=== PATIENT | female | born 1985 | race Asian ===

== ENCOUNTER → 2016-09-21 | Outpatient (CLI) | payer BC ==
[~2016-09-21] MED LIST: FRRS300 PO; PRENTAB26 PO
== END | disposition home or self-care (01) ==
LOC: C.LABSPEC 17:17
PROVIDERS: ATTEND Obstetrics & Gynecology
DX: Z34.03 Encounter for supervision of normal first pregnancy, third trimester (principal)

== ENCOUNTER 2016-10-09 08:22 | Inpatient (IN) | payer BC ==
[~2016-10-09] VITALS: Ht 162.6 cm; Wt 68.2 kg
[2016-10-09] MEDS ORDERED: LACTATED RINGER'S 1000ML 1,000 ML IV PRN (08:44)
[2016-10-09 08:48] VITALS: BMI 25.8
[2016-10-09] MEDS ORDERED: PRENTAB26 PO (09:05)
[2016-10-09] MEDS ORDERED: FENTANYL CITRATE INJ 50 MCG/1 ML 2 ML VIAL ONE (09:17)
[2016-10-09] MEDS ORDERED: FENTANYL 2MCG/ML ROPIV 1.25MG/ML 100ML BAG EPI ONE (09:17)
[2016-10-09] MEDS ORDERED: BUPIVACAINE 0.25% 30 ML VIAL ONE (09:17)
[2016-10-09] MEDS ORDERED: EpHEDrine SULFATE INJ 50 MG/ML AMP ONE (09:17)
[2016-10-09 09:35] LABS: HEMATOCRIT 38.4 % (37-47); MEAN CELL VOLUME 95.5 fL (80-100); MEAN CORPUSCULAR HEMOGLOBIN 32.1 pg (25-34); MEAN CORPUSCULAR HGB CONC 33.6 g/dl (32-36); MEAN PLATELET VOLUME 9.7 fL (7.4-10.4); PLATELET COUNT 242 K/uL (130-400); RED BLOOD COUNT 4.02 M/uL (4.2-5.4); WHITE BLOOD COUNT 9.28 K/uL (4.8-10.8)
[2016-10-09] MEDS ORDERED: LACTATED RINGER'S 1000ML 500 ML IV PRN ×2 (09:55→10:52)
[2016-10-09] MEDS ORDERED: NALOXONE HCL INJ 1 MG in SODIUM CHLORIDE 0.9% 1000ML 1,000 ML IV PRN (09:55)
[2016-10-09] MEDS ORDERED: FENTANYL 2MCG/ML ROPIV 1.25MG/ML 100ML BAG EPI PRN (10:00)
[2016-10-09] MEDS ORDERED: EpHEDrine SULFATE INJ 50 MG/ML AMP IV PRN (10:00)
[2016-10-09] MEDS ORDERED: NALOXONE HCL INJ 0.4 MG/1 ML VIAL/CARP IV PRN (10:00)
[2016-10-09] MEDS ORDERED: NALBUPHINE HCL INJ 10 MG/ML AMP IV PRN (10:00)
[2016-10-09] MEDS ORDERED: ONDANSETRON INJ 2 MG/ML 2 ML VIAL IV PRN (10:00)
[2016-10-09] MEDS ORDERED: DiphenhydrAMINE HCL 50 MG/ML VIAL IV PRN (10:00)
[2016-10-09] MEDS: LACTATED RINGER'S 1000ML 1,000 ML IV SCH ×2 (10:05→10:07)
[2016-10-09 10:38] VITALS: Ht 162.6 cm; Wt 68.2 kg
[2016-10-09] MEDS ORDERED: OXYTOCIN 30 UNITS/500ML NSS IV PRN ×2 (11:00→16:30)
[2016-10-09] MEDS ORDERED: METHYLERGONOVINE MALEATE 0.2 MG/ML AMP ONE (16:11)
[2016-10-09] MEDS ORDERED: BENZOCAINE 20% AER SPR 82.5 GM CAN EXT PRN (16:30)
[2016-10-09] MEDS ORDERED: ACETAMINOPHEN/CODEINE 300/30MG TAB PO PRN ×2 (16:30)
[2016-10-09] MEDS ORDERED: HYDROCORTISONE ACETATE 25 MG SUPP PR PRN (16:30)
[2016-10-09] MEDS ORDERED: METHYLERGONOVINE MALEATE 0.2 MG/ML AMP IM ONE (16:30)
[2016-10-09] MEDS ORDERED: ACETAMINOPHEN 325 MG TAB PO PRN (16:30)
[2016-10-09] MEDS ORDERED: LANOLIN OINT EXT PRN ×2 (16:30)
[2016-10-09] MEDS ORDERED: DIPHTHERIA/TETANUS/PERTUSSIS 0.5 ML SYR/VIAL IM. ONE (16:30)
[2016-10-09] MEDS ORDERED: SUPERCREAM 0.870 % 15GM JAR EXT PRN (16:30)
--- NOTE | 2016-10-09 17:30 | DELIVERY SUMMARY ---
DATE OF OPERATION: 10/09/2016 DELIVERY NOTE DATE OF DELIVERY: 10/09/2016. FINDINGS: Viable female with Apgars of 9 and 10. The baby delivered over a midline second degree laceration. Cord gasses, cord blood samples obtained. The placenta delivered spontaneously. Laceration repaired with 4-0 and 2-0 Vicryl in a routine fashion. Her estimated blood loss was 300 mL. LABOR NOTE: The patient is a 30-year-old 1, para 0 with an EDC of 12 October at 39+ weeks gestational age who presented to labor and delivery in active labor. The patient states her contractions began approximately 0200 hours on the date of delivery. She denied rupture of membranes or vaginal bleeding. The patient has had a benign course. Her blood type is 0 positive, antibody negative, rubella immune, hepatitis B negative. She had a negative panorama, negative internal serum AFP and normal 1-hour Glucola x2 and negative third trimester beta strep culture. Upon admission the patient was 6 cm dilated, 100% efface, +1 station with bulging membranes. Tracing was felt to be category 2 with moderate variability and accelerations. The patient had requested and received an epidural. Over the next 2 hours she had minimal cervical change. Artificial rupture of membranes for clear fluid. Pitocin augmentation was initiated secondary to arrest of dilatation. Over the next 3 hours she progressed to full dilatation and began her second stage. She pushed for approximately 2 hours delivering a viable female with description as above. Cord was clamped and cut. Cord gasses and cord blood samples obtained. The placenta was delivered spontaneously. Inspection of the perineum showed a midline second degree laceration. The patient had some uterine atony at this point which required vigorous uterine massage and IM methargen along with the IV Pitocin. Midline laceration was repaired with 4-0 and 2-0 Vicryl in a routine fashion. Her estimated blood loss was 500 mL. Sponge and needle count was correct. I attest to the content of the Intraoperative Record and any orders documented therein. Any exceptio ns are noted below.
[2016-10-09] MEDS: IBUPROFEN 600 MG TAB PO PRN ×2 (18:06→23:41)
--- NOTE | 2016-10-09 18:29 | Anesthesia Procedure Note ---
Anesthesia Epidural Removal Nt Date & Time October 09, 2016 at 18:29 Notes Mental Status: alert / awake / arousable, participated in evaluation Nausea / Vomiting: adequately controlled Pain: adequately controlled Airway Patency, RR, SpO2: stable & adequate BP & HR: stable & adequate Hydration State: stable & adequate Neuraxial Anesthesia: was administered, sensory block is resolving Anesthetic Complications: no major complications apparent, pt satisfied with anesthetic care Epidural: removed without complications, with tip intact
[2016-10-09 19:30] VITALS: BP 112/76; PULSE 90; TEMP 37.1; O2SAT 98
[2016-10-09] MEDS: DOCUSATE SODIUM 100 MG CAP PO SCH (20:00)
[2016-10-10] VITALS (7 sets, daily range): BP systolic 100–122; BP diastolic 67–79; PULSE 88–117; TEMP 36.4–36.9; O2SAT 98–99
[2016-10-10] MEDS ORDERED: LIDOCAINE/PRILOCAINE 2.5% EA CRM ONE (00:11)
--- NOTE | 2016-10-10 06:49 | Progress Note ---
Subjective October 10, 2016. Subjective conversation w/ patient, physical exam Ambulation: ambulating normally Feeding Type: Breast Feeding Objective Vital Signs Date Time Temp Pulse Resp B/P Pulse Ox O2 Delivery O2 Flow Rate FiO2 10/10/16 03:45 36.5 88 18 122/78 99 Room Air 10/10/16 00:10 36.8 98 18 117/79 99 Room Air 10/10/16 00:10 99 Room Air 10/09/16 19:30 37.1 90 18 112/76 98 Room Air 10/09/16 19:30 98 Room Air Physical Exam General Appearance: WELL-APPEARING, NO APPARENT DISTRESS Fundus: Firm, Non-Tender Extremities: no calf tenderness Laboratory Results Last 24 Hours Test 10/09/16 09:07 10/10/16 04:44 White Blood Count 9.28 K/uL Red Blood Count 4.02 M/uL Hemoglobin 12.9 g/dL Hematocrit 38.4 % Mean Corpuscular Volume 95.5 fL Mean Corpuscular Hemoglobin 32.1 pg Mean Corpuscular Hemoglobin Concent 33.6 g/dl RDW Standard Deviation 46.9 fL RDW Coefficient of Variation 13.6 % Platelet Count 242 K/uL Mean Platelet Volume 9.7 fL Assessment and Plan Post- Day#: 1 Continue Routine Care: - routine care - doing well
[2016-10-10 07:10] LABS: HEMATOCRIT 27.4 % (37-47)
[2016-10-10] MEDS: FERROUS SULFATE 325 MG TAB PO SCH (07:55)
[2016-10-10] MEDS: DOCUSATE SODIUM 100 MG CAP PO SCH ×2 (07:55→19:30)
[2016-10-10] MEDS: IBUPROFEN 600 MG TAB PO PRN ×3 (07:55→23:25)
[2016-10-10] MEDS: PRENATAL VITAMIN TAB PO SCH (07:58)
[2016-10-10] MEDS ORDERED: BISACODYL 5 MG TABEC PO SCH (20:00)
--- NOTE | 2016-10-11 07:23 | Progress Note ---
Subjective Oct 11, 2016. Subjective conversation w/ patient, chart review, review of studies Ambulation: ambulating normally Voiding: no voiding problems Diet Tolerance: Regular Diet Lochia: Moderate Feeding Type: Breast Feeding Objective Vital Signs Date Time Temp Pulse Resp B/P (MAP) Pulse Ox O2 Delivery O2 Flow Rate FiO2 10/10/16 23:15 Room Air 10/10/16 23:15 36.7 113 16 108/67 (81) 98 Room Air 10/10/16 15:30 36.9 117 18 114/73 (87) 98 Room Air 10/10/16 15:30 98 Room Air 10/10/16 12:10 36.7 116 17 108/68 (81) 99 Room Air 10/10/16 08:47 98 Room Air 10/10/16 08:45 36.6 110 16 100/69 (79) 98 Room Air 10/10/16 08:00 Room Air Physical Exam General Appearance: WELL-APPEARING Abdomen: non tender Fundus: Firm Extremities: no calf tenderness Assessment and Plan Post- Day#: 2 Continue Routine Care: home, discussed Fe for low Hb JFD
[2016-10-11] MEDS ORDERED: FRRS300 PO (07:24)
--- NOTE | 2016-10-11 07:25 | Discharge Instructions ---
Discharge Instructions Date of Service Oct 11, 2016. Admission Reason for Admission: Check Labor Discharge Discharge Diagnosis / Problem: normal delivery Discharge Goals Goal(s): Routine recovery after delivery Activity Recommendations Activity Limitations: per Instructions/Follow-up section . Instructions / Follow-Up Instructions / Follow-Up ACTIVITY RECOMMENDATIONS: * Gradual return to full activity over the next 2-3 weeks. * No lifting - nothing heavier than baby over the next 2-3 weeks. * Do not engage in vigorous exercise, sexual activity or sports until cleared by your physician. * Do not drive or operate any motorized equipment until cleared by your physician. * You may shower/bathe daily. MEDICATIONS: For discomfort or pain, you may use Acetaminophen (Tylenol), Ibuprofen (Advil), or Naproxen (Aleve) following the package directions. For constipation you may use Colace following the package directions. BREAST CARE: If you are not breast feeding: * Wear a supportive bra 24 hours a day for one to two weeks. * Avoid stimulating your breasts and nipples as much as possible during the first few weeks after delivery. * When taking a shower, have the warm water hit your back, not breasts. * When your breasts feel full, apply ice packs. Usually three to four times a day helps ease the discomfort. * Take a mild pain medication (Tylenol / Motrin) when you are uncomfortable. If breast feeding: * Use breast milk to lubricate nipples. Lansinoh cream may be used for sore nipples. You do not need to remove cream prior to breast feeding. If using a different brand of cream, check the label for directions regarding removal of cream prior to nursing. * Wear a supportive bra. * If having problems with breasts or breast feeding, call a design consultant or your health care provider. EPISIOTOMY CARE: After delivery, if you have an episiotomy (stitches), the following steps will ease discomfort and aid healing. * For the first 24 hours after delivery, place ice packs next to your episiotomy to help reduce swelling. * After the first 24 hour-period, sitz baths, either portable or in the tub, are suggested. A shower with a shower arm sprayed over the episiotomy may be comforting. * Yary care should be done after each voiding and bowel movement. Squirt warm water from a plastic bottle over the perineum (region of the body between the anus and urinary opening) and pat dry. * Use Dermoplast to ease discomfort. Shake container. [place] directly over the episiotomy. Place a Tucks on a clean sanitary pad next to your episiotomy. SPECIAL CARE INSTRUCTIONS: When you are discharged from the hospital, it is important for you to follow the instructions listed below: * During the first week at home, you should be able to care for yourself and your baby. In addition, the usual light household activities are encouraged. * Limit your activities to the way you feel. Do not try to clean the house or move furniture. Be sensible. * If you actively engage in sports and have done so up until the time of your delivery, you may resume these activities as soon as you feel able. This may take up to one month or even longer. Use good judgment. * Continue to take your vitamins for at least six weeks after the of your baby. * Your diet need not be limited unless you were on a special diet before your delivery. Breast-feeding mothers need around 2500 calories per day and at least 64-80 ounces of fluid per day (8 to 10 glasses). * You should eat foods from the four major food groups. Crash diets or fad diets are to be avoided. Eating lean meats, fresh fruits and vegetables, low-fat dairy products, high fiber foods and a regular exercise program, will help you get back to your pre- weight without putting your health at risk. * Constipation is sometimes a problem after delivery. Take a mild laxative as needed. If breast feeding, Milk of Magnesia is acceptable to use. You may use a suppository or Fleets enema if no episiotomy. * A daily shower or tub bath is suggested. Be sure to thoroughly and gently dry the perineum. * A bloody vaginal discharge will usually continue until around four weeks post . A small amount of bleeding may continue for as long as six weeks. Vaginal discharge changes from the bright red bleeding after delivery to pink then brownish and finally yellowish-pink before becoming white and disappearing. * Bleeding may increase with activity. Your first period may come in 4-8 weeks. If you are breast feeding, your period may be delayed even longer. * Yonah (sex) can begin whenever both you and your partner feel comfortable and do not have any form of genital infection. It is recommended that you wait at least six weeks for internal and external healing to occur. If you have questions, please talk to your health care practitioner. A condom should be used to prevent infection and . * Foreplay, gentle intercourse and lubrication is very important the first several times to prevent pain. A water-based lubricant such as K-Y jelly or Astroglide may be used. * If you have RH negative blood and your baby is RH positive, you will receive RHOGAM by injection prior to discharge. The nurse will give you a card to keep with you that has the date and place that you received RHOGAM after delivery. * During your care, you had a Rubella screen done to check for the presence of rubella antibodies in your blood. If your test was negative, you will receive a Rubella vaccine prior to discharge. This vaccine may cause a fever, soreness at the injection site and flu-like symptoms. If these symptoms persist, notify your health care practitioner. is not advised for one month after a Rubella vaccine. * Verbalizes understanding of car seat law as reviewed with patient nursing. * Car Seat hand-out given and reviewed with patient by nursing. * Shaken baby information reviewed with patient by nursing. Call you doctor if: * Heavy bleeding (saturating several pads an hour) or passing clots the size of your fist. * A fever >101 degrees F (38.3 degrees C) on two occasions four hours apart and /or chills. * Unusual pain in the pelvic or vaginal areas. * "Baby Blues" lasting longer than two weeks. If you have any questions or concerns, call your health care practitioner at . FOLLOW UP VISIT: * Please call the office at to schedule a 6 week examination. It is important you keep this appointment. It is important for you to make arrangements for either yearly or twice yearly check-ups thereafter. Current Hospital Diet Patient's current hospital diet: Regular OB Diet Discharge Diet Recommended Diet: Regular OB Diet Pending Studies Studies pending at discharge: no Medical Emergencies . Who to Call and When: Medical Emergencies: If at any time you feel your situation is an emergency, please call 911 immediately. . Non-Emergent Contact Non-Emergency issues call your: Network Technician . . "Provider Documentation" section prepared by Bucky Engel. . VTE Core Measure Inpt VTE Proph given/why not?: Treatment not indicated
[2016-10-11 08:25] VITALS: BP 115/75; PULSE 105; TEMP 36.7; O2SAT 100
[2016-10-11] MEDS: PRENATAL VITAMIN TAB PO SCH (08:48)
[2016-10-11] MEDS: DOCUSATE SODIUM 100 MG CAP PO SCH (08:48)
[2016-10-11] MEDS: FERROUS SULFATE 325 MG TAB PO SCH (08:49)
[2016-10-11] MEDS: IBUPROFEN 600 MG TAB PO PRN (08:49)
[2016-10-11 11:55] VITALS: BP_DIAS 75; PULSE 105; TEMP 36.7
== END 2016-10-11 11:55 | disposition home or self-care (01) | DRG 775 ==
LOC: C.LD 08:22 → C.OPB 08:22 → C.LD 08:46 → C.OPB 08:46 → C.OBG 19:27 → EDSTATUS 10-12 08:19
PROVIDERS: ADMIT Obstetrics & Gynecology; ATTEND Obstetrics & Gynecology
PROC: 10E0XZZ Delivery of Products of Conception, External Approach (ICD-10-PCS; principal; 2016-10-09)
PROC: 0KQM0ZZ Repair Perineum Muscle, Open Approach (ICD-10-PCS; principal; 2016-10-09)
DX: O70.1 Second degree perineal laceration during delivery (principal); Z37.0 Single live birth; O76 Abnormality in fetal heart rate and rhythm complicating labor and delivery; O62.1 Secondary uterine inertia; O62.2 Other uterine inertia; Z3A.40 40 weeks gestation of pregnancy